=== PATIENT | male | born 1985 | race African-American/Black ===

== ENCOUNTER 2019-02-06 08:42 | Emergency (ER) | payer OTHER ==
[~2019-02-06] VITALS: Ht 172.7 cm; Wt 72.6 kg
[~2019-02-06 08:42] MED LIST: ATHLETE'S FOOT28 GM TOPIC; IBUPROFEN600 MG ORAL; NKM
[2019-02-06 08:50] VITALS: BP 118/72
--- NOTE | 2019-02-06 09:00 | NUR ---
ED Nurse Note: pt walked in to Ed due to right ear discomfort since this morning. no hearing loss or pain reported. AAO x4. respirations even and non-labored noted. will wait for the further order.
--- NOTE | 2019-02-06 09:07 | NUR ---
Note romario in EDM - 02/06/19 at 0915 by JASE ED Nurse Note: ENRIQUETA Adams performing ear irrigation on bilateral ears as ordered.
--- NOTE | 2019-02-06 09:10 | NUR ---
ED Nurse Note: ENRIQUETA Adams done right ear irrigation without complications.
--- NOTE | 2019-02-06 09:12 | Emergency Room Report ---
History of Present Illness General Chief Complaint: Earache Source: Patient Present Illness HPI Patient states has a history of earwax buildup. He does have a home ear irrigation. However, he states that did not work after attempting to irrigate his right ear today. He states the ear feels clogged and has decreased hearing on that side. He denies pain. He denies ear discharge. He denies headache. He denies fever or chills. He is requesting irrigation. He denies recent illness. He has no other complaints. Allergies: Coded Allergies: ALBUTEROL (Verified Allergy, Unknown, 08/02/16) Patient History Past Medical History: see triage record, asthma Social History: Reports: smoking; Denies: alcohol use, drug use Reviewed Nursing Documentation: PMH: Agreed; PSxH: Agreed Nursing Documentation-PMH Past Medical History: No Stated History Hx Asthma: Yes Review of Systems All Other Systems: negative except mentioned in HPI Physical Exam Vital Signs Date Time Temp Pulse Resp B/P (MAP) Pulse Ox O2 Delivery O2 Flow Rate FiO2 02/06/19 08:46 98.2 65 16 118/72 97 Room Air Sp02 EP Interpretation: reviewed, normal General Appearance: no apparent distress, alert, GCS 15, non-toxic Head: normocephalic, atraumatic Eyes: bilateral eye normal inspection, bilateral eye PERRL ENT: hearing grossly normal, normal pharynx, no angioedema, normal voice, other - R. ear: external canal with mild swelling and debris. +soft ear wax. Neck: normal inspection, full range of motion, supple/symm/no masses Respiratory: no respiratory distress, no retraction, no accessory muscle use, speaking full sentences Rectal: deferred Musculoskeletal: back normal, gait/station normal, normal range of motion, non- tender Neurologic: alert, oriented x3, responsive, motor strength/tone normal, sensory intact, speech normal Psychiatric: judgement/insight normal, memory normal, mood/affect normal, no suicidal/homicidal ideation Skin: normal color, no rash, warm/dry, well hydrated Procedures Additional Procedure Procedure Narrative This patient underwent saline irrigation of his right here with an 18-gauge catheter and syringe. Procedure was effective at removing earwax. There were no complications. Medical Decision Making Diagnostic Impression: Primary Impression: Cerumen impaction Additional Impression: Otitis externa ER Course This patient did have cerumen in his right ear canal. The canal was irrigated with successful removal of the earwax. The patient's external canal slightly irritated and swollen. I'm concerned that there is an early otitis externa. This may be secondary to the patient trying to remove the earwax on his own. I will go ahead and treat the patient with a course of topical antibiotics. There is no evidence of malignant otitis externa. The patient is given close return precautions and follow-up instructions. Last Vital Signs Date Time Temp Pulse Resp B/P (MAP) Pulse Ox O2 Delivery O2 Flow Rate FiO2 02/06/19 08:46 98.2 65 16 118/72 97 Room Air Status: improved Disposition: HOME, SELF-CARE Condition: Improved Patient Instructions: Otitis Externa, [id number] Trini Moon DO Feb 06, 2019 09:12
[2019-02-06] MEDS ORDERED: CIPRODEX OTIC7.5 M1 RIGHT EAR (09:15)
[2019-02-06 09:24] VITALS: BP 118/72
--- NOTE | 2019-02-06 09:25 | NUR ---
ER DISCHARGE NOTE: Patient is cleared to be discharged per ERMD, pt is aox4, on room air, with stable vital signs. pt was given dc and prescription instructions, pt was able to verbalize understanding, pt id band removed. pt is able to ambulate with steady gait. pt took all belongings.
== END 2019-02-06 09:26 | disposition home or self-care (01) ==
LOC: EMR 09:11
DX: H61.21 Impacted cerumen, right ear (principal); H60.91 Unspecified otitis externa, right ear; J45.909 Unspecified asthma, uncomplicated
CPT/HCPCS: 99282